=== PATIENT | male | born 1990 ===

== ENCOUNTER 2018-07-20 23:14 | Emergency (ER) | payer OTHER ==
[2018-07-20 23:23] VITALS: BP 133/87; PULSE 74; RESP 17; TEMP 98.4; O2SAT 99
[2018-07-21] MEDS ORDERED: Absorbable Gelatin Sponge Size 12-7 TP ONE ×2 (00:06→00:49)
[2018-07-21] MEDS ORDERED: Absorbable Gelatin Sponge Size 12-7 ONE (00:14)
[2018-07-21] MEDS ORDERED: Povidone Iodine Topical 10% Sol ONE (00:22)
[2018-07-21] MEDS ORDERED: Tdap Vaccine 0.5 ml Vial (10-64 yrs) IM ONE ×2 (00:49→01:39)
--- NOTE | 2018-07-21 01:17 | ED PDOC ---
HPI: Skin/Bite Injury Time Seen by Provider: 07/20/18 23:39 Chief Complaint (Nursing): Abnormal Skin Integrity Chief Complaint (Provider): Abnormal Skin Integrity History Per: Patient History/Exam Limitations: no limitations Location Of Injury: Right: Hand (4th finger) Additional Complaint(s): 28 years old male presents to ER for evaluation of right hand injury onset today. Patient reports he was taking garbage and accidentally sliced his right 4th finger with a piece of glass. He states glass did not break and he is unsure of his last tetanus vaccination. PMD: None provided Past Medical History Reviewed: Historical Data, Nursing Documentation, Vital Signs Vital Signs: Last Vital Signs Temp 98.4 F 07/20/18 23:20 Pulse 74 07/20/18 23:20 Resp 17 07/20/18 23:20 BP 133/87 07/20/18 23:20 Pulse Ox 99 07/20/18 23:20 Primary Care Provider: FAMILY PROVIDER,NO - Medical History PMH: No Chronic Diseases - Surgical History Surgical History: No Surg Hx - Family History Family History: States: Unknown Family Hx - Allergies Allergies/Adverse Reactions: Allergies Allergy/AdvReac Type Severity Reaction Status Date / Time No Known Allergies Allergy Verified 07/20/18 23:20 Review of Systems ROS Statement: Except As Marked, All Systems Reviewed And Found Negative Musculoskeletal: Positive for: Hand Pain (Right 4th finger injury) Physical Exam - Reviewed Nursing Documentation Reviewed: Yes Vital Signs Reviewed: Yes - Physical Exam Appears: Positive for: Well, No Acute Distress Head Exam: Positive for: ATRAUMATIC, NORMOCEPHALIC Skin: Positive for: Warm Extremity: Positive for: Normal ROM (able to flex and bend right DIP and PIP.), Other (Right fourth finger avulsion 1 cm in diameter with slow venous bleeding. Neurovascular intact. Sensation intact) Neurological/Psych: Positive for: Awake, Alert, Oriented (x3) - ECG O2 Sat by Pulse Oximetry: 99 (RA) Pulse Ox Interpretation: Normal Medical Decision Making Medical Decision Making: Time: 5 A/P: Skin avulsion --Wound cleaned with iodine --Gelfoam applied with successful cessation of bleeding --Tetanus updated --Wound care instructions given Scribe Attestation: Documented by Татьяна Shafer acting as a scribe for Serjio Talley MD. Provider Scribe Attestation: All medical record entries made by the Scribe were at my direction and personally dictated by me. I have reviewed the chart and agree that the record accurately reflects my personal performance of the history, physical exam, medical decision making, and the department course for this patient. I have also personally directed, reviewed, and agree with the discharge instructions and disposition. Disposition - Clinical Impression Clinical Impression: Skin avulsion - Disposition Referrals: Zayra Gregory [Outside] Disposition: Routine/Home Disposition Time: 00:30 Condition: IMPROVED Instructions: Wound Care Forms: Zayra Colvin ([place]), [facility] ED School/Work Excuse
== END 2018-07-21 01:46 | disposition home or self-care (01) ==
LOC: H.ER 23:14
DX: S61.214A Laceration without foreign body of right ring finger without damage to nail, initial encounter (principal); W25.XXXA Contact with sharp glass, initial encounter; Y92.89 Other specified places as the place of occurrence of the external cause